=== PATIENT | female | born 2000 | race Caucasian/White ===

== ENCOUNTER 2022-02-25 06:48 | Emergency (ER) | payer OTHER ==
[~2022-02-25] VITALS: Ht 165.1 cm; Wt 111.1 kg
[2022-02-25 06:53] VITALS: BP 138/109
--- NOTE | 2022-02-25 07:27 | NUR ---
Dr. Banegas examining patient.
[2022-02-25 07:56] LABS: BASOPHILS % (AUTO) 0.7 % (0.0-2.0); EOSINOPHILS # (AUTO) 0.1 K/uL (0-0.4); EOSINOPHILS % (AUTO) 1.9 % (0.0-4.0); HEMATOCRIT 44.8 % (36-48); HEMOGLOBIN 14.7 g/dL (12.0-16.0); LYMPHOCYTES # (AUTO) 1.7 K/uL (2.5-16.5); LYMPHOCYTES % (AUTO) 28.9 % (20.5-51.1); MEAN CORPUSCULAR HEMOGLOBIN 29 pg (27-31); MEAN CORPUSCULAR HGB CONC 33 g/dL (33-37); MEAN CORPUSCULAR VOLUME 87.2 fL (80-94); MONOCYTES # (AUTO) 0.6 K/uL (0.8-1.0); MONOCYTES % (AUTO) 9.6 % (1.7-9.3); NEUTROPHILS # (AUTO) 3.5 K/uL (1.8-7.7); NEUTROPHILS % (AUTO) 58.9 % (42.2-75.2); PLATELET COUNT (AUTO) 177 K/uL (140-450); RED BLOOD CELL COUNT(AUTO) 5.14 MIL/uL (4.20-5.40); RED CELL DISTRIBUTION WIDTH 14.6 % (11.6-13.7)
[2022-02-25 07:58] LABS: APPEARANCE,URINE CLOUDY (CLEAR); BILIRUBIN,URINE 3+ (NEGATIVE); BLOOD, URINE 3+ (NEGATIVE); COLOR,URINE YELLOW (YELLOW); LEUKOCYTE ESTERASE ,URINE TRACE (NEGATIVE); NITRITE, URINE NEGATIVE (NEGATIVE); UGLUCOSE NEGATIVE (NEGATIVE)
[2022-02-25] MEDS: KETOROLAC 30 MG/ML VIAL IM ONE (08:00)
[2022-02-25 08:12] LABS: ALBUMIN 4.5 g/dL (3.4-5.0); ANION GAP 19.7 (8-16); CARBON DIOXIDE 25.9 mmol/L (21-32); CREATININE 0.9 mg/dL (0.6-1.3); POTASSIUM 3.6 mmol/L (3.5-5.1); TOTAL BILIRUBIN 0.7 mg/dL (0.0-1.0)
[2022-02-25 08:15] LABS: OTHER CASTS, URINE None Seen /LPF (None Seen); RBC,URINE 20-50 /HPF (0-5)
--- NOTE | 2022-02-25 08:22 | NUR ---
21/F PRESENTS TO ED WITH C/O RIGHT SIDED FLANK PAIN SINCE THIS MORNING. PATIENT REPORTS RECENTLY RECEIVING A GASTRIC SLEEVE, STATES PAIN CAME ON SUDDENLY AND HAS GOTTEN PROGRESSIVELY WORSE. PATIEN DENIES N/V/D OR URINARY SYMPTOMS.
[2022-02-25] MEDS ORDERED: TRAM50TA1 PO (10:53)
[2022-02-25] MEDS ORDERED: CEPH-588 PO (10:55)
[2022-02-25 11:13] VITALS: BP 134/97
--- NOTE | 2022-02-25 11:14 | NUR ---
Patient discharged with v/s stable. Written and verbal after care instructions given and explained. Patient alert, oriented and verbalized understanding of instructions. Ambulatory with steady gait. All questions addressed prior to discharge. ID band removed. Patient advised to follow up with PMD. Rx of KIDNEY STONES AND URINARY TRACT INFECTION given. Patient educated on indication of medication including possible reaction and side effects. Opportunity to ask questions provided and answered.
== END 2022-02-25 11:14 | disposition home or self-care (01) ==
LOC: MED 06:48
DX: N23 Unspecified renal colic (principal); N20.0 Calculus of kidney; Z98.890 Other specified postprocedural states
CPT/HCPCS: 36415; 74176; 80053; 81001; 81025; 85025; 87086; 96372; 99284; J1885